=== PATIENT | female | born 1955 | race Two or more races ===

== ENCOUNTER 2020-06-17 06:35 | Day surgery (SDC) | payer OTHER ==
[~2020-06-17 06:35] MED LIST: COZAAR25 MG; INDERAL LA80 MG
== END 2020-06-17 14:50 | disposition home or self-care (01) ==
LOC: CIR.AMB 06:35
PROVIDERS: ATTEND Orthopaedic Surgery Hand Surgery
DX: M19.042 Primary osteoarthritis, left hand (principal); Z20.822 Contact with and (suspected) exposure to COVID-19

== ENCOUNTER 2024-09-21 09:42 | Emergency (ER) | payer OTHER ==
[~2024-09-21] VITALS: Ht 154.9 cm; Wt 59.4 kg
[2024-09-21] MEDS ORDERED: PEPCID AC20 MG (10:00)
[2024-09-21] MEDS ORDERED: MONTELUKAST SODI4 M1 (10:00)
[2024-09-21] MEDS ORDERED: DESLORATADINE5 M1 (10:01)
[2024-09-21] MEDS ORDERED: EZALLOR SPRINKLE5 MG (10:01)
[2024-09-21 11:01] LABS: BASO % 0.6 % (0.1-1.2); EOS # 0.02 (0.04-0.54); EOS % 0.4 % (0.7-7.0); HEMATOCRIT 35.5 % (34.1-44.9); HEMOGLOBIN 11.7 g/dL (11.2-15.7); LYMPH # 0.84 (1.18-3.74); LYMPH % 16.9 % (19.3-53.1); MEAN CORPUSCULAR HEMOGLOBIN 28.5 pg (25.6-32.2); NEUT # 3.77 (1.56-6.13); NEUT % 75.9 % (34.0-71.1); PLATELET COUNT 301 K/uL (163-369); RED BLOOD COUNT 4.11 M/uL (3.93-5.22); RED CELL DISTRIBUTION WIDTH 12.8 % (11.6-14.4)
[2024-09-21 11:22] LABS: PH,URINE 7.5 (5.0-8.0); URINE APPEARANCE Clear; URINE BILIRRUBIN Negative (NEGATIVE); URINE BLOOD Trace; URINE COLOR Yellow; URINE GLUCOSE Negative (NEGATIVE); URINE KETONE Negative (NEGATIVE); URINE LEUKOCYTE Negative; URINE NITRATE Negative; URINE PROTEIN Negative (NEGATIVE); URINE UROBILINOGEN 0.2 E.U./dl
[2024-09-21 11:23] LABS: URINE RBC 7.1 uL (0.0-20.8)
[2024-09-21 11:26] LABS: URINE BACTERIA 1.2 uL (0.0-1933); URINE EPITHELIAL CELLS 0.6 uL (0.0-38.8); URINE WBC 1.4 uL (0.0-23.2)
[2024-09-21 11:35] LABS: ALBUMIN 3.7 gm/dL (3.4-5.0); BILIRUBIN TOTAL 0.54 mg/dL (0.3-1.2); BILIRUBIN,CONJUGATED 0.15 mg/dL (0.0-0.2); BILIRUBIN,UNCONJUGATED 0.39 mg/dL (0.0-0.6); CALCIUM 8.9 mg/dL (8.5-10.1); CREATININE SERUM 0.68 mg/dL (0.55-1.02); GFR 85.79; GLOBULINA 3.6 G/DL (2.4-3.5); POTASSIUM 3.79 mEq/L (3.5-5.1); TOTAL PROTEIN 7.3 gm/dL (6.4-8.2)
== END 2024-09-21 15:44 | disposition home or self-care (01) ==
LOC: ER 09:42
PROVIDERS: Emergency Medicine
DX: R10.9 Unspecified abdominal pain (principal); J45.909 Unspecified asthma, uncomplicated; K57.30 Diverticulosis of large intestine without perforation or abscess without bleeding; D25.9 Leiomyoma of uterus, unspecified
CPT/HCPCS: 36415; 74177; 99284; Q9965